=== PATIENT | male | born 1940 | race Caucasian/White ===

== ENCOUNTER → 2019-07-04 | Day surgery (SDC) | payer MEDICARE, OTHER ==
[~2019-07-04] MED LIST: Phenylephrine 2.5% Ophth Soln 2 ML Bot EYERT SCH; Tropicamide 1% Ophth Soln 15 ML Bottle EYERT SCH
[2019-07-04] MEDS: Brimonidine 0.2% Ophth Soln 5 ML Bottle EYERT SCH ×2 (12:29→13:08)
== END ==
LOC: JD.SDS 11:51
PROVIDERS: ATTEND Ophthalmology
DX: H26.491 Other secondary cataract, right eye (principal); H31.091 Other chorioretinal scars, right eye; H02.834 Dermatochalasis of left upper eyelid; H02.831 Dermatochalasis of right upper eyelid; J45.909 Unspecified asthma, uncomplicated; I10 Essential (primary) hypertension; Z96.1 Presence of intraocular lens; Z87.891 Personal history of nicotine dependence; Z79.82 Long term (current) use of aspirin